=== PATIENT | male | born 1995 | race Hispanic/Latino ===

== ENCOUNTER 2017-12-14 04:05 | Inpatient (IN) | payer MEDICAID ==
--- NOTE | 2017-12-14 04:39 | C.PDOC ---
History Of Present Illness <Luis MiguelbridgetteariaMansiBarbra - Last Filed: 12/14/17 04:40> <Hayde Lr - Last Filed: 12/14/17 05:38> 22 year old male is a transfer from [facility] for psychiatric admission for SI with a plan. Patient states he has no complaints at this time, denies any hallucinations. Patient states he does not have any SI/HI at this time in the ED. (Barbra Siu) History Per: Patient History/Exam Limitations: no limitations Onset/Duration Of Symptoms: Days Current Symptoms Are (Timing): Still Present Suicide/Self Injury Attempted (Context): None Associated Symptoms: Suicidal Thoughts, Suicidal Plan. denies: Depression Recent travel outside of the [place]: No Additional History Per: Patient <Luis MiguelbridgetteariaMansiBarbra - Last Filed: 12/14/17 04:40> <Hayde Lr - Last Filed: 12/14/17 05:38> Time Seen by Provider: 12/14/17 04:20 Chief Complaint (Nursing): Psychiatric Evaluation Past Medical History Reviewed: Historical Data, Nursing Documentation, Vital Signs - Medical History PMH: No Chronic Diseases Surgical History: No Surg Hx Family History: States: Unknown Family Hx - Social History Hx Alcohol Use: Yes Hx Substance Use: Yes <Barbra Siu - Last Filed: 12/14/17 04:40> Vital Signs: Last Vital Signs Temp 97.7 F 12/14/17 04:10 Pulse 57 L 12/14/17 04:10 Resp 16 12/14/17 04:10 BP 127/86 12/14/17 04:10 Pulse Ox 100 12/14/17 04:49 Review Of Systems Constitutional: Negative for: Fever, Chills Cardiovascular: Negative for: Chest Pain Respiratory: Negative for: Cough, Shortness of Breath Gastrointestinal: Negative for: Nausea, Vomiting, Abdominal Pain Skin: Negative for: Rash Neurological: Negative for: Weakness, Numbness <Barbra Siu - Last Filed: 12/14/17 04:40> Physical Exam - Physical Exam Appears: Non-toxic, No Acute Distress Skin: Normal Color, Warm, Dry Head: Atraumatic, Normacephalic Eye(s): bilateral: Normal Inspection Nose: No Discharge, No Deformity Oral Mucosa: Moist Neck: Normal ROM, Supple Chest: Symmetrical Cardiovascular: Rhythm Regular, No Murmur Respiratory: Normal Breath Sounds, No Rales, No Rhonchi, No Wheezing Gastrointestinal/Abdominal: Soft, No Tenderness, No Guarding, No Rebound Extremity: Normal ROM, No Tenderness, No Deformity, No Swelling Neurological/Psych: Oriented x3, Normal Speech, Normal Cognition <Barbra Siu - Last Filed: 12/14/17 04:40> ED Course And Treatment O2 Sat by Pulse Oximetry: 100 (On RA) Pulse Ox Interpretation: Normal Progress Note: Patient will be admitted under Dr. Bowers <Barbra Siu - Last Filed: 12/14/17 04:40> Disposition <Barbra Siu - Last Filed: 12/14/17 04:40> - Disposition Disposition Time: 05:38 <Hayde Lr - Last Filed: 12/14/17 05:38> - Disposition Disposition: HOSPITALIZED Condition: FAIR - Clinical Impression Clinical Impression: Suicidal ideations - PA / CERTIFIED CAREGIVER / Resident Statement MD/DO has reviewed & agrees with the documentation as recorded. - Scribe Statement The provider has reviewed the documentation as recorded by the Scribe <Barbra Siu - Last Filed: 12/14/17 04:40> <Hayde Lr - Last Filed: 12/14/17 05:38> - Scribe Statement Steve Choi All medical record entries made by the Scribe were at my direction and personally dictated by me. I have reviewed the chart and agree that the record accurately reflects my personal performance of the history, physical exam, medical decision making, and the department course for this patient. I have also personally directed, reviewed, and agree with the discharge instructions and disposition. (Barrba Siu)
--- NOTE | 2017-12-14 06:01 | PCM.BM ---
<ChristianobárbaraCarri - Last Filed: 12/14/17 05:59> Treatment assets and liabiliti Patient Assests: adapts well, cooperative, educated, resourceful, self-reliant, ADL independent, physically healthy, good support system, negotiates basic needs - Milieu Protocol Maintain good personal hygiene: daily Encourage regular showers, daily Remind patient to perform daily oral care, other Assist patient to perform ADL's Maintain personal safety: every shift Monitor environment for contraband/sharps , other Educate patient to report safety concerns to staff (prn) Medication safety: Monitor for expected outcome, potential side effects: every shift, Assess barriers to learning: every shift, Assess readiness for medication education: every shift <Margaret Dave - Last Filed: 12/14/17 10:55> - Diagnosis (1) Major depressive disorder, single episode, severe without psychosis Status: Acute Interventions: 12/14/17 10:55 * Assess/adjust medications daily and /or as needed * See patient on an individual basis 7x/week to assess symptoms of depression * Monitor for side effects & effectiveness of medications * (2) Cannabis use disorder, severe, dependence Status: Acute Interventions: 12/14/17 10:57 * Assess 7x/week regarding severity of withdrawal * Educate regarding risks, benefits, side effects and alternatives of medications * Use Motivational Interviewing for abstinence * Use CBT for relapse prevention * Medication management for withdrawal symptoms * Encourage medication assisted treatment * <Conchis Torres - Last Filed: 12/14/17 10:59> Family Contact Family involvement: Family/SO is involved Family contact: Patient agrees to contact Family contact name: Jeyson Daly-father Family contacted how many times per week?: 1 - Goals for Treatment Patient goals for treatment: "I want to take prescribed marijuana." Discharge/Continuing Care - Education Needs Education Needs: Patient Medication, Patient Coping Skills, Patient Placement options, Patient Community resources - Discharge Discharge Criteria: Tolerates medication w/o severe side effects, No longer exhibiting s/s of withdrawal, Reduction of target symptoms
--- NOTE | 2017-12-14 10:28 | PCM.PSYCH ---
Initial Psychiatric Evaluation - Initial Psychiatric Evaluation Type of Admission: Voluntary Legal Status: Capacity Chief Complaint (in patient's own words): "I got in a fight with my girlfriend and made suicidal ideation." History of Present Illness and Precipitating Events: Patient is a 22 year old male who lives with his mom, dad and younger brother. He is single with no kids, he works for his [employer]. 3 days ago he drank 6-10 24 oz beers, argued with his girlfriend of 7 months, went to his friends house, did cocaine for the first time. The next day, his girlfriend would not talk to him. Per his parents, he told his parents he drove to a bridge and that he did not want to live anymore. They called the police, and he was brought to the ED. Patient reports depressed and irritable mood. He still feels sad about the break up and remained guarded about current SI. Patient was organized, well kept, soft spoken, internally preoccupied. Patient smokes marijuana every other day, spends $200/wk at $20/g. He sporadically takes xanax. He snorted cocaine once for the first time 3 days ago. He drinks alcohol, beer only. Cigarettes: 2 ppd. He is organized, well kept. Denies audio/visual hallucinations or current suicidal ideation. Psych: Denies previous psychiatric hospitalization or ever seeing a psychiatrist or therapist. PMHx: denies Allergies: PCN Mom speaks Russian, only. Dad: Jeyson [phone] Current Medications: Active Medications Generic Name Dose Route Start Last Admin Trade Name Erick PRN Reason Stop Dose Admin Pneumococcal Polyvalent Vaccine 0.5 ml 12/16/17 10:00 Pneumovax 23 Vaccine IM 12/16/17 10:01 .ONCE ONE Past Psychiatric History - Past Psychiatric History Previous Treatment History: None Pertinent Medical Hx (Current Medical&Sleep Prob, Allergies): Allergies Allergy/AdvReac Type Severity Reaction Status Date / Time Penicillins Allergy Verified 12/14/17 04:13 No Known Home Med 12/14/17 Review of Systems - Review of Systems All systems: reviewed and no additional remarkable complaints except - Neurological Neurological: UNREMARKABLE - Psychiatric Psychiatric: Depression, Hopelessness, Suicidal Ideation. absent: Homicidal Ideation Mental Status Examination - Personal Presentation Personal Presentation: Looks stated age - Affect Affect: Constricted, Depressed - Motor Activity Motor Activity: Calm - Reliability in Providing Information Reliability in Providing Information: Fair - Speech Speech: Organized - Mood Mood: Depressed - Formal Thought Process Formal Thought Process: No Impairment - Obsessions/Compulsions Obsessions: No Compulsions: No - Cognitive Functions Orientation: Person, Place, Situation, Time Sensorium: Alert Attention/Concentration: Attentive Abstract Thinking: [place] Estimate of Intelligence: Below average Judgement: Imparied, as evidence by: Poor judgement, Imparied, as evidence by: Lack of insight into illness Memory: Recent intact, as evidence by: Ability to recall events of the day, Remote intact, as evidenced by: Abilit to recall sig. life events - Risk Risk: Suicidal, Diminished functioning - Strength & Assets Inventory Strength & Assets Inventory: Family support DSM 5 DX - DSM 5 DSM 5 Diagnosis: Major depressive disorder single episode severe without psychotic features R/O Adjustment d/o with depressed mood Alcohol use disorder moderate Cocaine use disorder mild - Recommended/Plan of Treatment Treatment Recommendations and Plan of Treatment: Major depressive disorder single episode severe without psychotic features R/O Adjustment d/o with depressed mood -CBT -Psychoeducation -Supportive therapy, group therapy, individual therapy -Sertraline 25 mg PO Daily -Trazodone 50 mg pO QHS -Hydroxyzine 25 mg PO Q6 hr prn Alcohol use disorder moderate Cocaine use disorder mild -CBT -Psychoeducation -Supportive therapy, group therapy, individual therapy - Smoking Cessation Smoking Cessation Initiated: No
--- NOTE | 2017-12-15 20:13 | PCM.PYCHPN ---
Psychiatric Progress Note - Psychiatric Progress Note Patient seen today, length of contact: 18 minutes Patient Chief Complaint: "I'm not suicidal" Problems Identified/Issues Discussed: Pt was seen and evaluated. Chart reviewed. Per chart review Nurse Eve report , Pt is transfer from [facility]. Pt. had been feeling increasingly depressed after breakup with girlfriend, and began having suicidal ideations. No past hx. of SI/SA. No hx in-patient mental health, Psychiatry or community resources use. Pt. stated intermittent sleep issue. Insomnia or hypersomnia. Some appetite changes. Pt. was found in remote location by [facility] Police after texting photos of a knife/ and/beer and images of a jimmie to parents and ex-girlfriend with messages such as "I love you." "I am sorry." On evaluation he denied depressive symptoms, and on inquiring about SI, and pictures he stated that he drank 4-6 cans of beer. He was confused and he does not able to recall. He stated that he had verbal argument with his GF on something. He was not able to explain it further. He reported that he wants to be discharge home with his father. He stated that all verbal altercation was happened in the home and his GF left him. He denies any auditory/visual/tactile hallucinations, paranoia, or delusional thoughts. Pt denies substance abuse/addiction admits to drinking alcohol socially and smoking marijuana on occasion. He further stated that his friends are smoking medical marijuana. He denied cocaine and Xanax use. However, his UDS + for benzos, THC, cocaine. Pt. states he is a 2PPD smoker, and ask nicotine patch. Medication Change: No Medical Record Reviewed: Yes Mental Status Examination - Cognitive Function Orientation: Person, Place, Situation, Time Memory: Intact Attention: WNL Concentration: WNL Association: WNL Fund of Knowledge: WN Decription of patient's judgement and insights: limited/limited Addtional comments: Calm and superficially cooperative - Mood Mood: Depressed - Affect Affect: Constricted, Depressed - Speech Speech: Appropriate - Formal Thought Process Formal Thought Process: No Impairment Psychotic Thoughts and Behaviors: denied - Suicidal Ideation Suicidal Ideation: No Plan: denied - Homicidal Ideation Homicidal Ideation: No Plan: denied Goal/Treatment Plan - Goal/Treatment Plan Need for Continued Stay: Discharge may exacerbated symptoms Progress Toward Problem(s) and Goals/Treatment Plan: Continue current meds as per primary team. Called screener for involuntary admission after reviewing the chart. Will obtain collateral information from the family and GF Therapy in milieu - Smoking Cessation Smoking Cessation Initiated: Yes
[2017-12-15 21:46] VITALS: PULSE 72
[2017-12-16 05:47] VITALS: BP 106/61; RESP 16; TEMP 97.9; O2SAT 99
[2017-12-16] MEDS ORDERED: Influenza Vaccine 60 mcg/0.5 mL SYR (4YR UP) IM ONE (10:00)
[2017-12-16] MEDS ORDERED: Pneumococcal 23-Valent Vaccine IM ONE (10:00)
--- NOTE | 2017-12-16 12:25 | PCM.PYCHDC ---
Mental Status Examination - Mental Status Examination Orientation: Person, Place, Situation, Time Memory: Intact Mood: Neutral Affect: Broad Speech: Appropriate Attention: WNL Concentration: WNL Association: WNL Fund of Knowledge: WNL Formal Thought Process: No Impairment Description of patient's judgement and insight: good/good Psychotic Thoughts and Behaviors: denied Suicidal Ideation: No Current Homicidal Ideation?: No Plan: denied intent or plan. He has no access to the guns, want to live for his family. He has good social support from family. Discharge Summary - Discharge Note Reason for Hospitalization: Patient is a 22 year old male who lives with his mom, dad and younger brother. He is single with no kids, he works for his [email or web address]. 3 days ago he drank 6-10 24 oz beers, argued with his girlfriend of 7 months, went to his friends house, did cocaine for the first time. The next day, his girlfriend would not talk to him. Per his parents, he told his parents he drove to a bridge and that he did not want to live anymore. They called the police, and he was brought to the ED. Patient reports depressed and irritable mood. He still feels sad about the break up and remained guarded about current SI. Patient was organized, well kept, soft spoken, internally preoccupied. Patient smokes marijuana every other day, spends $200/wk at $20/g. He sporadically takes xanax. He snorted cocaine once for the first time 3 days ago. He drinks alcohol, beer only. Cigarettes: 2 ppd. He is organized, well kept. Denies audio/visual hallucinations or current suicidal ideation. Psych: Denies previous psychiatric hospitalization or ever seeing a psychiatrist or therapist. PMHx: denies Allergies: PCN Mom speaks Gabonese, only. Dad: Jeyson [phone] Consultations:: List each consultation separately and include: 1. Reason for request. 2. Findings. 3. Follow-up Summary of Hospital Course include:: 1. Description of specific treatment plan utilized for patients during their course of treatmen. 2. Summarize the time- course for resolution of acute symptoms and/or regressed behaviors. 3. Describe issues identified and worked on during hospitalization. 4. Describe medication utilized. 5. Describe medical problems identified and treated. 6. Reassessment of suicide risk Summary of Hospital Course: The pt was admitted for the treatment of depression. He was started on Zoloft 25 mg po daily with psychotherapy. He received psychoeducation regarding illicit drugs use and its consequences on the physical and mental health. HI and CBT techniques were used. The pt attended groups and activities, as well as milieu therapy. All the risks and benefits of medications were discussed and the patient understood and agreed. However, the pt refuse to take his anti- depressive medication as he denied depressive symptoms. Pt signed 48 hours sign out notice for earlier discharge. This MD also called the screener from [facility], who cleared the pt for discharge because he is not committable. Family meeting was done including this MD, therapist and patient's father. Then the patient was included in the meeting. Pt's father did not raise any safety concerns regarding the patient. He is feeling safe about pt being discharge today in his care and pt's father reported that his son never had any etoh issues. He also reported that he was not aware of his son using marijuana or other substances. He reported that his son was in a bad relationship. He further explained that his son's GF was not a good person. He reported that his son never attempted suicide, or had any self- harming behavior towards himself or to the other peoples. Pt's father will monitor pt's safety and ensure that pt is safe and will follow up with treatment. SW, patient, and patient's father agreed that pt need to follow-up with this MD's recommendation for pt to attend an outpatient program to continue treatment especially individual counseling and substance abuse treatment after discharge. The pt improved with the treatment. Pt appreciate the treatment and care which was provided to him. At the time of d/c pt denied any depressive symptoms, manic symptoms. He denied any SI, HI, intent or plan. Pt denied any perceptual disturbances. He had no behavioral issues. Psychoeducation was provided to the pt to be compliant with the treatment plan and f/u plan after the discharge. After care discussed with the patient and his father. - Diagnosis (1) Adjustment disorder with depressed mood Status: Resolved (2) Cannabis use disorder, severe, dependence Status: Resolved (3) Alcohol abuse Status: Resolved - Final Diagnosis (DSM 5) Condition upon Discharge: STABLE DSM 5: Adjustment disorder with depressed mood Cannabis use disorder Alcohol use disorder Disposition: HOME/ ROUTINE Follow-up Treatment Plan: Follow after care plan as discussed Recommend to f/u with Primary care doctor once a year Recommend to f/u with the substance abuse program. Referral provided to make an appointment and to f/u with substance abuse program. Stay away from illicit drugs use Recommend to use different coping skills for depression and anxiety. Return to nearest ER or call 911 if suicidal, homicidal or symtpoms relapse. Continue below medications after discharge. Time spend 28 minutes - Smoking Cessation Smoking Cessation Medication prescribed: No - Antipsychotic Medications Pt discharged on 2 or more routine antipsychotic medications: No
--- NOTE | 2017-12-17 22:47 | CARD ---
APPROVED REPORT EKG Measurement Heart [id number] <Conclusion> Normal sinus rhythm Rightward axis Borderline ECG
== END 2017-12-15 13:45 | disposition home or self-care (01) | DRG 430 ==
LOC: C.ER 04:05 → C.5E 04:38
PROVIDERS: ADMIT Psychiatry & Neurology Psychiatry; ATTEND Psychiatry & Neurology Psychiatry
PROC: GZ56ZZZ Individual Psychotherapy, Supportive (ICD-10-PCS; principal; 2017-12-14)
DX: F32.2 Major depressive disorder, single episode, severe without psychotic features (principal); R45.851 Suicidal ideations; F14.10 Cocaine abuse, uncomplicated; F10.10 Alcohol abuse, uncomplicated; F12.20 Cannabis dependence, uncomplicated; F17.210 Nicotine dependence, cigarettes, uncomplicated; F43.21 Adjustment disorder with depressed mood